=== PATIENT | female | born 1980 | race Caucasian/White ===

== ENCOUNTER 2018-09-15 17:21 | Emergency (ER) | payer SELFPAY ==
[~2018-09-15] VITALS: Ht 160 cm; Wt 86.2 kg
[~2018-09-15 17:21] MED LIST: ACET500C5 PO; CEPH-443 PO
[2018-09-15 17:43] VITALS: BP 127/57; PULSE 81; RESP 18; Ht 160 cm; Wt 86.2 kg
== END 2018-09-15 19:08 | disposition left against medical advice (07) ==
LOC: FTE 17:21
DX: Z53.21 Procedure and treatment not carried out due to patient leaving prior to being seen by health care provider (principal)